=== PATIENT | female | born 2000 | race African-American/Black ===

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

== ENCOUNTER 2021-11-08 10:00 | Emergency (ER) | payer BC, MEDICAID ==
[~2021-11-08] VITALS: Ht 165.1 cm; Wt 59.0 kg
[2021-11-08 10:09] VITALS: BP 147/70
--- NOTE | 2021-11-08 10:13 | NUR ---
Patient ambulated with steady gait to bed 4.
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
[2021-11-08] MEDS ORDERED: ACETAMINOPHEN EXTRA STRENGTH 500 MG TAB PO ONE (10:35)
[2021-11-08] MEDS ORDERED: KETOROLAC 30 MG/ML VIAL IM ONE (11:15)
--- NOTE | 2021-11-08 11:15 | NUR ---
PT TAKEN TO CT WITH TECH VIA WHEELCHAIR.
--- NOTE | 2021-11-08 11:36 | NUR ---
PT BACK FROM CT.
--- NOTE | 2021-11-08 11:40 | NUR ---
PT COMPLAINS OF 7/10 NECK/BACK PAIN. MEDICATED WITH TORODOL IM PER MD ORDER. WILL CONTINUE TO MONITOR.
[2021-11-08] MEDS ORDERED: IBUP-2213 PO (12:31)
[2021-11-08] MEDS ORDERED: LID5T TP (12:32)
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
== END 2021-11-08 12:35 | disposition home or self-care (01) ==
LOC: MED 10:00
DX: S16.1XXA Strain of muscle, fascia and tendon at neck level, initial encounter (principal); S20.219A Contusion of unspecified front wall of thorax, initial encounter; S09.90XA Unspecified injury of head, initial encounter; V89.2XXA Person injured in unspecified motor-vehicle accident, traffic, initial encounter; Y93.89 Activity, other specified; Y92.89 Other specified places as the place of occurrence of the external cause; Y99.8 Other external cause status
CPT/HCPCS: 70450; 70490; 71250; 81025; 96372; 99285; J1885

== ENCOUNTER 2022-09-10 01:00 | Emergency (ER) | payer MEDICAID, OTHER ==
[~2022-09-10] VITALS: Ht 165.1 cm; Wt 59.1 kg
[~2022-09-10 01:00] MED LIST: IBUP-2213 PO; LID5T TP
[2022-09-10 01:06] VITALS: BP 121/65
[2022-09-10] MEDS ORDERED: KETOROLAC 15 MG/ML VIAL IM ONE (01:40)
[2022-09-10 01:47] LABS: APPEARANCE,URINE SL CLOUDY (CLEAR); BILIRUBIN,URINE NEGATIVE (NEGATIVE); BLOOD, URINE NEGATIVE (NEGATIVE); COLOR,URINE YELLOW (YELLOW); LEUKOCYTE ESTERASE ,URINE 1+ (NEGATIVE); NITRITE, URINE NEGATIVE (NEGATIVE); UGLUCOSE NEGATIVE (NEGATIVE)
--- NOTE | 2022-09-10 01:51 | NUR ---
UA SENT TO LAB, MEDICATED PER ORDER
[2022-09-10 01:53] LABS: RBC,URINE 0-5 /HPF (0-5); WBC,URINE TOO MANY TO COUNT /HPF (0-5)
[2022-09-10] MEDS ORDERED: NITR100C7 PO (02:10)
[2022-09-10] MEDS ORDERED: NITROFURANTOIN 100 MG CAP PO ONE (02:10)
== END 2022-09-10 02:24 | disposition home or self-care (01) ==
LOC: MED 01:00
DX: N39.0 Urinary tract infection, site not specified (principal); N94.6 Dysmenorrhea, unspecified; R19.7 Diarrhea, unspecified; R30.0 Dysuria; Z79.899 Other long term (current) drug therapy
CPT/HCPCS: 81001; 81025; 87086; 96372; 99283; J1885

== ENCOUNTER 2022-09-22 16:25 | Emergency (ER) | payer MEDICAID ==
[~2022-09-22] VITALS: Ht 157.5 cm; Wt 56.7 kg
[~2022-09-22 16:25] MED LIST changes: +NITR100C7 PO
[2022-09-22 16:36] VITALS: BP 124/64
[2022-09-22] MEDS ORDERED: NACL 0.9% 1,000 ML IV ONE (16:50)
[2022-09-22] MEDS ORDERED: KETOROLAC 30 MG/ML VIAL IVP ONE (16:50)
[2022-09-22] MEDS ORDERED: ONDANSETRON 4 MG/2 ML VIAL IVP ONE (16:50)
[2022-09-22 16:56] LABS: BILIRUBIN,URINE 1+ (NEGATIVE); BLOOD, URINE TRACE-I (NEGATIVE); COLOR,URINE YELLOW (YELLOW); LEUKOCYTE ESTERASE ,URINE 3+ (NEGATIVE); NITRITE, URINE POSITIVE (NEGATIVE); UGLUCOSE NEGATIVE (NEGATIVE)
[2022-09-22 17:10] LABS: BASOPHILS % (AUTO) 0.2 % (0.0-2.0); HEMATOCRIT 35.1 % (36-48); HEMOGLOBIN 11.7 g/dL (12.0-16.0); LYMPHOCYTES # (AUTO) 0.8 K/uL (2.5-16.5); LYMPHOCYTES % (AUTO) 9.2 % (20.5-51.1); MEAN CORPUSCULAR HEMOGLOBIN 30 pg (27-31); MEAN CORPUSCULAR HGB CONC 33 g/dL (33-37); MEAN CORPUSCULAR VOLUME 90.4 fL (80-94); MONOCYTES # (AUTO) 2.2 K/uL (0.8-1.0); NEUTROPHILS # (AUTO) 6.1 K/uL (1.8-7.7); NEUTROPHILS % (AUTO) 66.6 % (42.2-75.2); PLATELET COUNT (AUTO) 106 K/uL (140-450); RED BLOOD CELL COUNT(AUTO) 3.88 MIL/uL (4.20-5.40); RED CELL DISTRIBUTION WIDTH 12.4 % (11.6-13.7); WHITE BLOOD COUNT (AUTO) 9.2 K/uL (4.8-10.8)
[2022-09-22 17:31] LABS: ANION GAP 13.1 (8-16); CARBON DIOXIDE 25.2 mmol/L (21-32); POTASSIUM 3.3 mmol/L (3.5-5.1)
[2022-09-22 17:35] LABS: APPEARANCE,URINE CLOUDY (CLEAR)
[2022-09-22 17:41] LABS: RBC,URINE 0-5 /HPF (0-5); WBC,URINE TOO MANY TO COUNT /HPF (0-5)
[2022-09-22] MEDS ORDERED: IBUP-2213 PO (18:02)
[2022-09-22] MEDS ORDERED: CIPR500T4 PO (18:02)
[2022-09-22 18:14] VITALS: BP 103/48
--- NOTE | 2022-09-22 18:14 | NUR ---
Patient discharged with v/s stable. Written and verbal after care instructions ABOUT UTI given and explained. Patient alert, oriented and verbalized understanding of instructions. Ambulatory with steady gait. All questions addressed prior to discharge. ID band removed. Patient advised to follow up with PMD. Rx of CIPRO, MOTRIN given. Patient educated on indication of medication including possible reaction and side effects. Opportunity to ask questions provided and answered.
== END 2022-09-22 18:14 | disposition home or self-care (01) ==
LOC: MED 16:25
DX: N39.0 Urinary tract infection, site not specified (principal); Z20.822 Contact with and (suspected) exposure to COVID-19; R10.9 Unspecified abdominal pain; M79.10 Myalgia, unspecified site; Z79.899 Other long term (current) drug therapy
CPT/HCPCS: 36415; 80048; 81001; 81025; 83690; 85025; 87086; 87426; 87804; 96361; 96374; 96375; 99284; J1885; J2405; J7030